=== PATIENT | female | born 1960 ===

== ENCOUNTER 2019-02-28 05:12 | Inpatient (IN) | payer OTHER ==
[2019-02-28] VITALS (14 sets, daily range): BP systolic 120–152; BP diastolic 67–86
[~2019-02-28] VITALS: Ht 154.9 cm; Wt 98.0 kg
[~2019-02-28 05:12] MED LIST: TIMOPTIC 0.5%1 DROP BOTH EYES
[2019-02-28] MEDS ORDERED: Lidocaine 1% MPF 10mg/ml 5ml ONE (06:34)
[2019-02-28] MEDS ORDERED: Phenylephrine 10mg/ml Vial ONE (06:38)
[2019-02-28] MEDS ORDERED: fentaNYL 100 mcg/2 mL IV ONE (06:43)
[2019-02-28] MEDS ORDERED: Midazolam 2mg/2ml Inj ONE (06:43)
[2019-02-28] MEDS ORDERED: Rocuronium Bromide 50mg/5ml Inj IV ONE (06:53)
[2019-02-28] MEDS ORDERED: Succinylcholine 20mg/ml 10ml vial ONE (06:53)
[2019-02-28] MEDS ORDERED: Bacitracin 50000 Units Vial ONE (06:59)
[2019-02-28] MEDS ORDERED: Gelfoam Size TOPIC ONE (06:59)
[2019-02-28] MEDS ORDERED: Thrombin 5000 units TOPIC ONE (06:59)
[2019-02-28] MEDS ORDERED: Sterile Water Irrig 1000ml IRRIG ONE (07:00)
[2019-02-28] MEDS ORDERED: LR 1000ml ONE (07:00)
[2019-02-28] MEDS ORDERED: Propofol 1,000mg/ 100ml btl IV ONE (07:00)
[2019-02-28] MEDS ORDERED: Neostigmine 1mg/ml 10ml Inj ONE (07:00)
[2019-02-28] MEDS ORDERED: NS Irrig 1000ml ONE (07:00)
--- NOTE | 2019-02-28 07:21 | Anethesia Preoperative Eval ---
Anesthesia Pre-op PMH/ROS General Date of Evaluation: Feb 28, 2019 Time of Evaluation: 06:55 Anesthesiologist: Dayan ASA Score: ASA 3 Mallampati Score Class I : Soft palate, uvula, fauces, pillars visible Class II: Soft palate, uvula, fauces visible Class III: Soft palate, base of uvula visible Class IV: Only hard plate visible Mallampati Classification: Class III Surgeon: Samia Diagnosis: Cervical radiculopathy Surgical Procedure: ACDF Anesthesia History: none Family History: no anesthesia problems Allergies: Coded Allergies: No Known Allergies (Unverified , 02/27/19) Medications: see eMAR Patient NPO?: Yes NPO Date: Feb 27, 2019 NPO Time: 1999 Past Medical History Cardiovascular: Reports: HTN - borderline; Denies: CAD, VA, valve dz, arrhythmia, other Pulmonary: Reports: SANTY; Denies: asthma, COPD, other Gastrointestinal/Genitourinary: Reports: GERD; Denies: CRI, ESRD, other Neurologic/Psychiatric: Reports: depression/anxiety, other - chronic pain; Denies: dementia, CVA, TIA Endocrine: Denies: DM, hypothyroidism, steroids, other HEENT: Reports: glaucoma; Denies: cataract (L), cataract (R), ONONDAGA (L), ONONDAGA (R), other Hematology/Immune: Denies: anemia, DVT, bleeding disorder, other Musculoskeletal/Integumentary: Reports: OA Other: obesity PMH Narrative: as above PSxH Narrative: T&A, x3 Anesthesia Pre-op Phys. Exam Physician Exam Last Vital Signs Date Time Temp Pulse Resp B/P (MAP) Pulse Ox O2 Delivery O2 Flow Rate FiO2 02/28/19 06:10 97.2 87 20 152/72 (98) 100 02/28/19 05:52 Room Air Constitutional: NAD Neurologic: CN 2-12 intact Cardiovascular: RRR, no M/R/G Respiratory: CTA Gastrointestinal: other - obesity Airway Exam Mallampati Score: Class III MO: limited Neck: short stiff ROM: limited Teeth: missing Dentures: no upper, no lower Anesthesia Pre-op A/P Labs see chart Studies Pre-op Studies: EKG - NSR, CXR - WNL Risk Assessment & Plan Assessment: ASA 3 Plan: GA with ETT neuromonitoring Status Change Before Surgery: No Pre-Antibiotics Drug: Ancef 2 gr. Given Within 1 Hr of Incision: Yes Time Given: 07:55 Guanako Hanley MD Feb 28, 2019 07:21
[2019-02-28] MEDS ORDERED: Acetaminophen (Non formulary) 100 ML IV ONE (07:30)
--- NOTE | 2019-02-28 07:31 | Brief Operative Note ---
Immediate Post Operative Note Operative Note Chief Complaint: Neck pain and radiculopathy Pre-op Diagnosis: C67 herniation and radiculopathy Procedure: Anterior cervical discectomy and fusion of Cervical 67 Post-op Diagnosis: same as pre-op Findings: consistent w/pre-op dx studies Surgeon: Samia Branch Account Executive: Wes Anesthesiologist: BLUE Anesthesia: general Specimen: none Complications: none Condition: stable Fluids: IV Estimated Blood Loss: minimal Drains: none Implant(s) used?: Yes - Nuvasive interlock c sz 6, screws 13x3 Conrad Gracia MD Feb 28, 2019 07:31
--- NOTE | 2019-02-28 07:31 | Pre-Procedure Note/Attestation ---
Pre-Procedure Note/Attestation Complete Prior to Procedure Planned Procedure: not applicable Procedure Narrative: Anterior cervical discectomy and fusion of Cervical 67 Indications for Procedure Pre-Operative Diagnosis: C67 herniation and radiculopathy Attestation I attest that I discussed the nature of the procedure; its benefits; risks and complications; and alternatives (and the risks and benefits of such alternatives ), prior to the procedure, with the patient (or the patient's legal apprenticeship representative). I attest that, if there was a reasonable possibility of needing a blood transfusion, the patient (or the patient's legal apprenticeship representative) was given the [facility] standardized written summary, pursuant to the [place] Blood Safety Act ([place] Health and Safety Code # 1645, as amended). I attest that I re-evaluated the patient just prior to the surgery and that there has been no change in the patient's H&P, except as documented below: Conrad Gracia MD Feb 28, 2019 07:31
[2019-02-28] MEDS ORDERED: Metoprolol 5mg/5ml Inj ONE (08:05)
[2019-02-28] MEDS ORDERED: Morphine Sulfate 10mg/ml Inj ONE (08:20)
[2019-02-28] MEDS ORDERED: Sodium Chloride 10ml vial INJ ONE ×2 (08:33→08:53)
[2019-02-28] MEDS ORDERED: Ketorolac 30mg Inj ONE (08:33)
[2019-02-28] MEDS ORDERED: Glycopyrrolate 0.2mg/ml 1ml Vial ONE (08:36)
[2019-02-28] MEDS ORDERED: LR 1000ml 1,000 ML IVLG SCH (08:42)
[2019-02-28] MEDS ORDERED: Metoclopramide 10mg/2ml Inj IVP PRN ×2 (08:45→11:00)
[2019-02-28] MEDS ORDERED: DiphenhydrAMINE 50mg/ml Inj IVP PRN (08:45)
[2019-02-28] MEDS ORDERED: Hydromorphone 0.5mg/0.5ml inj IVP PRN (08:45)
[2019-02-28] MEDS ORDERED: Ketorolac 30mg Inj IV PRN (08:45)
--- NOTE | 2019-02-28 09:43 | Immediate Post-Op Evaluation ---
Immediate Post-Op Evalulation Immediate Post-Op Evalulation Procedure: ACDF C6-C7 Date of Evaluation: Feb 28, 2019 Time of Evaluation: 09:41 IV Fluids: 700 Blood Products: none Estimated Blood Loss: 50 Urinary Output: 300 Blood Pressure Systolic: 134 Blood Pressure Diastolic: 78 Pulse Rate: 82 Respiratory Rate: 20 O2 Sat by Pulse Oximetry: 98 Temperature (Fahrenheit): 97.6 Pain Score (1-10): 2 Nausea: No Vomiting: No Complications none Patient Status: reacts, patent, extubated, none Hydration Status: adequate Guanako Hanley MD Feb 28, 2019 09:43
--- NOTE | 2019-02-28 10:35 | NUR ---
NURSE NOTES: Patient received from PACU via bed to 302-1 at 1035 on O2 3LNC. Patient sleeping, arousable to name, follows verbal command. Denies SOB, pain or nausea. Neuro checks done, intact, hand grasps and pedal pushes equal/strong 5/5, skin warm, wiggles, no NT. Anterior neck surgical dressing, Dermabond intact, site clean/dry, slightly swollen and bruised. Ice pack to anterior and posterior neck. Bilateral SCDs on. IVF (LR) infusing to RAC, will change to NS+20KCL as ordered, when received from pharmacy. Notified RT for IS. Oriented patient to room and call light, verbalized understanding. Belongings reviewed with patient and PACU nurse. Bed in lowest position, call light in reach, will continue to monitor.
[2019-02-28] MEDS ORDERED: Morphine Sulfate 2mg/ml Inj(IV/IM USE ONLY) IV PRN (11:00)
[2019-02-28] MEDS ORDERED: HYDROmorphone 1mg/ml Carpuject IVP PRN (11:00)
[2019-02-28] MEDS ORDERED: HYDROcodone/Acetamin 7.5/325 tab ORAL PRN (11:00)
[2019-02-28] MEDS ORDERED: Chloraseptic Spray 20mL Bottle ORAL PRN (11:00)
[2019-02-28] MEDS ORDERED: HYDROcodone/Acetamin 5/325 tab ORAL PRN (11:00)
[2019-02-28] MEDS ORDERED: Naloxone 0.4mg/ml Inj IVP PRN (11:00)
[2019-02-28] MEDS ORDERED: Milk of Magnesia 30ml Ud ORAL PRN (11:00)
[2019-02-28] MEDS ORDERED: Morphine Sulfate 4mg/ml Inj (IV USE ONLY) IV PRN ×2 (11:00)
[2019-02-28] MEDS ORDERED: Dexamethasone 4mg/ml vial IVP SCH (12:00)
[2019-02-28] MEDS: NS w/KCl 20mEq 1000ml 1,000 ML IV SCH ×2 (12:41→23:53)
--- NOTE | 2019-02-28 14:00 | NUR ---
NURSE NOTES: Patient up to bathroom, voided without difficulty. Tolerated post cervical diet. Reinforced CDB with splinting anterior neck surgical site, verbalized understanding. Neuro checks intact, remain unchanged. Denies pain, tolerating ice pack to anterior/posterior neck. Will continue to monitor.
[2019-02-28] MEDS: Dexamethasone 4mg/ml vial IVP SCH ×2 (15:17→21:37)
--- NOTE | 2019-02-28 15:30 | Operative Note - Dictated ---
DATE OF OPERATION: 02/28/2019 SURGEON: Conrad Gracia MD, orthopedic spine surgeon. CLASP MACHINE OPERATOR: Robinson Strauss M.D. PREOPERATIVE DIAGNOSES: 1. Intractable neck pain. 2. Radiculopathy. 3. Herniation, C6-C7. 4. Neural foraminal stenosis C6-C7. 5. Stenosis. POSTOPERATIVE DIAGNOSES: 1. Intractable neck pain. 2. Radiculopathy. 3. Herniation, C6-C7. 4. Neural foraminal stenosis C6-C7. 5. Stenosis. PROCEDURE PERFORMED: 1. Anterior cervical discectomy and fusion of C6-C7 using Nuvasive Interlock C, size 6 mm a total of three 13 mm screws, with the insertion of 1 mL of allograft Osteocel bone. 2. Use of intraoperative microscope. 3. Motor evoked potential monitoring. 4. Somatosensory evoked potential monitoring. 5. Supervision and interpretation of fluoroscopy. COMPLICATIONS: None. ANESTHESIA: General. ESTIMATED BLOOD LOSS: Less than 100 mL. INDICATIONS FOR SURGERY: This patient is a 59-year-old female who has a history of intractable neck pain, radiculopathy, herniation, C6-C7, neural foraminal stenosis C6-C7, stenosis. We tried a course of conservative management but despite this course there was still a significant component of persistent, recalcitrant neck pain and arm pain. The MRI demonstrated significant neural foraminal compromise secondary to disc herniations at C6-C7. We had a long discussion with Francine regarding the risks and benefits of surgery. Our discussion included but was not limited to nonoperative management, chiropractic management, another epidural steroid injection as well definitive management in the form of surgery. We recommended a Anterior cervical discectomy and fusion of C6-C7 using Nuvasive Interlock C Cage, size 6 mm a total of three 13 mm screws, with the insertion of 1 mL of allograft Osteocel bone as final definitive management. We reviewed the risks and benefits of surgery with the patient. Our discussion included a comprehensive review of the clinical issues and the nature of the clinical decision. We reviewed the alternatives, including doing nothing. The patient elected to proceed accordingly with Anterior cervical discectomy and fusion of C6-C7 using Nuvasive Interlock C Cage, size 6 mm a total of three 13 mm screws, with the insertion of 1 mL of allograft Osteocel bone. We had a long discussion regarding the risks, alternatives and benefits of surgery. Our description of the risks included a discussion in person as well as a signed consent which detailed all pertinent risks from the procedure itself. Briefly, our discussion included but was not limited to infection, bleeding, pseudarthrosis, spinal cord injury, neurovascular injury, dural tear, CSF leak, neuropathy, paralysis, permanent weakness/drop foot/drop arm, paresthesias, blindness, palsy and weakness. The patient understood there may be a need for a revision surgery or additional procedures. Approach-related complications including dysphonia, dysphagia, blindness, permanent vocal cord and neural injury, hematoma, swallowing and breathing difficulty. Medical complications were reviewed including liver, kidney, shock, cardiopulmonary failure, anesthesia complications including , swelling, damage to the musculature, larynx/voice injury or loss, esophagus/throat, trachea, blood vessels and muscles/muscular sprain and lungs/pneumothorax during this surgical procedure; injury to deeper structures may be temporary or permanent. After this review of risks, the patient understood these and elected to proceed. A written and verbal consent was given. We discussed the pros and cons of all the alternatives. We discussed the uncertainties associated with the decision. Afterwards I assessed the patient's understanding and explored their preferences. All questions were answered and no guarantees were given. Medical clearance was obtained prior to surgery. INTRAOPERATIVE FINDINGS: At C6-C7, the disc demonstrated a slight decrease in disc height. The disc was not bone on bone by any means. The disc material itself was soft and hydrated. The disc was not calcified or thrombosed as we tend to see in a degenerative process. There was an anterior bone spur on the inferior limb of the C6 vertebral body. Once the disc was resected posteriorly along the posterior longitudinal ligament, I noticed a vertical tear on the PLL, which was left sided. This tear was probed with a Microsect 1-B and I found the inferior limb of the disc herniation, which was encroaching on the neural foramina and thecal sac posteriorly. This was resected with a Kerrison 1 and Kerrison 2 revealing a large disc herniation encroaching on the neural foramina there at C6-C7 on the left side. This was resected without difficulty and there was no calcification in the disc itself made me to believe this was more acute in nature. DESCRIPTION OF PROCEDURE: Under the benefit of general endotracheal anesthesia and with the assistance of the entire operative team, the [facility] operative table in the supine position. The head was secured and carefully positioned appropriately. Bilateral arms were secured with Gelpads and foam and all bony prominences were padded. For the bilateral lower extremities SCD and SUKHDEEP hose were placed for DVT prophylaxis. A surgical timeout was called which corroborated our planned procedure of Anterior cervical discectomy and fusion of C6-C7 using Nuvasive Interlock C, size 6 mm a total of three 13 mm screws, with the insertion of 1 mL of allograft Osteocel bone. Preoperative antibiotics were administered within 30 minutes of the incision for antibiotic prophylaxis. Using lateral fluoroscopic radiography, the operative levels were delineated. Next the wound was prepped and draped with Chlorhexidine and sterile drapes. An incision was based on lateral fluoroscopy and we centered our incision at the C6-C7 interspace and next using a standard Alvarez-Hong anterior based approach the incision was taken down through the skin and subcutaneous tissues until the vertebral bodies and their corresponding disc spaces were visualized. A needle was placed into the interspace to confirm placement of the operative interspace and we performed the remainder of procedure under microscopic visualization. Next, using a bipolar and Bovie cautery to ensure meticulous hemostasis, the longus colli was mobilized bilaterally and retractors were placed deep to the longus colli bilaterally to address retraction. Next we turned our attention to the radical anterior discectomy. This was initially performed at C6-C7. First by using a 15 blade scalpel followed by narrow pituitaries and a micro-sect 5-B curette was used to denude the endplate of all cartilaginous tissue. Next using a Midas Delfino AM8 drillbit the partial vertebrectomy was performed in a [id number] and layer by layer fashion, and ultimately the posterior uncinate joints bilaterally and posterior osteophytic lips and margins causing central and lateral impingement were carefully denuded until visualization of the posterior longitudinal ligament was possible. An endplate preparation was performed in the exact same fashion using an intervertebral meat stuffer, sequential distraction was obtained throughout the disc space. We saw a tear/rent in the PLL and this was carefully mobilized and dissected using a micro-set 1-B curet until we visualized a broad-based disc herniation with compression of the spinal cord as well as neural foramina which was left more than right sided. This neural foraminal compression was carefully resected using a Kerrison-1 and Kerrison-2 rongeurs until complete decompression of the spinal cord was visualized and complete decompression of the neural foramina and nerve root therein as well as the axilla and lateral margin of the nerve root was visualized and subsequently completely decompressed. The family was notified at one hour intervals throughout the procedure to provide for consistent updates. We next turned our attention towards trialing our implant within the disc space. We initially tried size 5 and afterwards size 6 trial from the Nuvasive Interlock C at each level, which appeared to be appropriate under AP and lateral fluoroscopy as well as in terms of its height, depth, width and lack of toggle. The PEEK polyetheretherketone interbody cages were then both packed with allograft bone from Osteocel and local autograft bone matrix. Next these were then carefully advanced and secured into their intervertebral spaces under direct visualization and with supervision of AP and lateral fluoroscopic views. We next turned our attention towards plating. Plating was performed with Nuvasive Interlock C plating system. A total of three screws, size 13 mm in length were inserted and confirmed under AP and lateral fluoroscopy and confirmed to be in excellent position. After a finger sweep we confirmed removal of all sponges. The retractor was removed and we next turned our attention to meticulous hemostasis with FloSeal and bipolar cautery. After the sponge and needle count was again found to be correct with our second count, we next turned our attention to closure. The wound was again copiously irrigated with antibiotic impregnated saline. Closure consisted of 4-0 clear nylon for the platysma, and 6-0 clear nylon for the superficial skin. Final skin closure and dressings consisted of Dermabond. Prior to final closure, a final radiograph was obtained which demonstrated the hardware is intact with excellent position throughout. The patient tolerated the procedure well. The patient was carefully extubated after the conclusion of surgery. We discussed the findings of the surgery with the family upon completion of the case. At this point the patient was transferred to the spine floor for further observation. Conrad Gracia M.D. DR: RAUL JOB#: [id number] CC:
--- NOTE | 2019-02-28 16:05 | NUR ---
CASE MANAGEMENT:REVIEW 59 YR OLD FEMALE HERE FOR ELECTIVE SURGERY SI: INTRACTABLE NECK PAIN. RADICULOPATHY 97.2 87 20 152/72 100% ON RA IS: TO SURGERY: ANTERIOR CERVICAL DISCECTOMY : TO MED/SURG 3 EAST POST OP INTERQUAL CRITERIA MET
[2019-02-28] MEDS: ceFAZolin sod 1 GM in D5W 55 ML IV SCH ×2 (16:37→23:52)
[2019-02-28] MEDS: Docusate 100mg cap ORAL SCH (17:24)
[2019-02-28] MEDS ORDERED: Tubing IV Secondary IV ONE (18:17)
--- NOTE | 2019-02-28 18:25 | NUR ---
NURSE NOTES: Reinforced IS indication, proper use and to apply small towel as splint to anterior neck surgical site, while performing IS, verbalized understanding.
--- NOTE | 2019-02-28 19:20 | NUR ---
HAND-OFF: Report given to Yu WELSH, rounds made.
--- NOTE | 2019-02-28 21:22 | NUR ---
NURSES NOTE: Met pt in bed, A/OX4, communicative, able to let needs be known. Patient denies pain in anterior neck. No outward s/s of distress noted. Breathing pattern is even and unlabored on RA as pt was weaned of off oxygen. Tolerated well. VS stable. Neuro check completed. Iv site shows no s/s of infiltration or infection running fluids at 100ml/hr without incident. Pt ambulated to the bathroom with assistance. SCD replaced once pt bk to bed. Bed at lowest level. Call light within reach. Pt will continue to be monitored.
--- NOTE | 2019-02-28 23:10 | NUR ---
NURSES NOTE: Pt in stable condition. Denies pain. Ice pack replinished and applied to Anterior neck. Surgical site, anterior neck-dermabond intact, slight swelling noted. IV RAC patent, running NS 20 kcl at 100cc/hr. Pt will continue to be monitored.
--- NOTE | 2019-02-28 23:28 | NUR ---
NURSES NOTE: NS 20 kcl not found in med room. Charge nurse also looked and made aware. Picked up from ED pixes by charge nurse.
[2019-03-01] MEDS: Dexamethasone 4mg/ml vial IVP SCH ×2 (02:57→08:15)
[2019-03-01] MEDS: HYDROcodone/Acetamin 7.5/325 tab ORAL PRN ×2 (04:52→14:17)
--- NOTE | 2019-03-01 07:29 | NUR ---
NURSE NOTES: Report received from Yu WELSH, rounds made. Patient sitting in upright position in bed. No distress on RA, encouraged IS use. Pain 4/10, denies need for pain medication at this time. Toleraling post cervical diet, no NV. Neuro intact. Skin warm, wiggles, no NT, pulses palpable. IVF (NS +20KCL at 100 ml) infusing to RAC, site asymptomatic. Bilateral SCDs on. Anterior neck surgical site, CDI, dermabond noted, mild bruising/swelling. Ice pack to anterior neck in place. Call light in reach, bed in lowest position, will continue to monitor.
[2019-03-01 08:00] VITALS: BP 124/77
[2019-03-01] MEDS: NS w/KCl 20mEq 1000ml 1,000 ML IV SCH (08:00)
--- NOTE | 2019-03-01 08:05 | NUR ---
HABND OFF: Report given to josh Harper. Patient stable.
[2019-03-01] MEDS: Docusate 100mg cap ORAL SCH (08:14)
[2019-03-01] MEDS: ceFAZolin sod 1 GM in D5W 55 ML IV SCH (08:14)
--- NOTE | 2019-03-01 09:15 | NUR ---
PT EVALUATION NOTE Patient seen for initial evaluation. Patient educated in proper log roll technique for in/OOB and cervical precautions. Patient SBA for bed mobility tasks, supervised for transfers and ambulation without assistive device. Patient will benefit from skilled inpatient PT intervention to address functional mobility and adherence to cervical precautions. Anticipate discharge home once medically cleared by MD. No DME needs identified at this time. Addendum: 03/01/19 at 0951 by ELIEL CHILDERS PT Amended: Links added.
[2019-03-01 10:39] VITALS: BP 128/76
--- NOTE | 2019-03-01 10:39 | 48 Hour Post Anesthesia Eval ---
Post Anesthesia Evaluation Procedure: ACDF C6-C7 Date of Evaluation: Mar 01, 2019 Time of Evaluation: 10:38 Blood Pressure Systolic: 128 0: 76 Pulse Rate: 78 Respiratory Rate: 20 Temperature (Fahrenheit): 97.6 O2 Sat by Pulse Oximetry: 98 Airway: patent Nausea: No Vomiting: No Pain Intensity: 3 Hydration Status: adequate Cardiopulmonary Status: stable Mental Status/LOC: patient returned to baseline Follow-up Care/Observations: n/a Post-Anesthesia Complications: none Follow-up care needed: ready to discharge Guanako Hanley MD Mar 01, 2019 10:39
--- NOTE | 2019-03-01 13:35 | NUR ---
NURSE NOTES: Patient up with RN to bathroom at 11 am, transfers well with RN instruction on how to log roll, maintain alignment using proper body mechanics. Voids well without difficulty, reports she had a BM earlier this morning, normal soft, brown, moderate. Appetite good. Discontinued IVF at 9 am. Ambulated in halls with PT twice. Plan for discharge at 3 pm.
--- NOTE | 2019-03-01 15:18 | Diagnostic Imaging Report ---
INDICATION: Pain, intraoperative TECHNIQUE: Intraoperative imaging Fluoroscopy time: 25.6 seconds Total dose: 0.43998 mGym2 Total number of images: 3 COMPARISON: None FINDINGS: Initial localizer image demonstrates a surgical tool projected at the C6-7 disc level. Subsequent images demonstrate anterior fusion hardware at C6-7. IMPRESSION: Intraoperative imaging, as described
[2019-03-01] MEDS ORDERED: NORCO 10-325 T1 EACH ORAL (15:47)
--- NOTE | 2019-03-01 16:20 | NUR ---
NURSE NOTES: Discharge instructions and prescription x1 reviewed with patient, verbalized understanding. Medicated for pain an hour prior to discharge, patient states pain is 5/10. Ice packs provided for home use. All belongings, discharge instructions and prescription x1 given to patient. IV heplock discontinued, no active bleeding. [facility], in stable condition. Discharged home at 1620. Addendum: 03/01/19 at 2006 by Meredith Panda RN IS sent home with patient, reinforced the importance of CDB with anterior neck splinting, verbalized understanding.
--- NOTE | 2019-03-03 08:17 | Discharge Summary ---
Discharge Summary Discharge Summary _ DATE OF ADMISSION: 02/28/2019 DATE OF DISCHARGE: 03/01/2019 DISCHARGED BY: Dr. Conrad Gracia BRIEF HOSPITAL COURSE: Patient is a 59-year-old female, who has history of intractable neck pain, radiculopathy, herniation, C6-C7, neural foraminal stenosis at C6-C7, was tried a course of conservative management but despite there was still significant component of persistent, recalcitrant neck pain and arm pain. MRI demonstrated significant neural foraminal compromise secondary to disc herniations at C6-C7. Patient was admitted on 02/28/2019 and underwent ACDF C6-C7. She tolerated procedure well. Surgery was uneventful. Post-operatively, patient was admitted for post-op care. She was placed on SCDs for DVT prophylaxis and was encouraged use of incentive spirometer. Patient was given pain management. She was seen by PT. Diet was advanced. Incision was clean, dry and intact. Patient was ambulating well with good pain control and was tolerating diet. Patient was eventually cleared for discharge home. FINAL DIAGNOSES: 1. Intractable neck pain. 2. Radiculopathy. 3. Herniation, C6-C7. 4. Neural foraminal stenosis C6-C7. 5. Stenosis. PROCEDURE PERFORMED: 1. Anterior cervical discectomy and fusion of C6-C7 using Nuvasive Interlock C, size 6 mm a total of three 13 mm screws, with the insertion of 1 mL of allograft Osteocel bone. 2. Use of intraoperative microscope. 3. Motor evoked potential monitoring. 4. Somatosensory evoked potential monitoring. 5. Supervision and interpretation of fluoroscopy. (Refer to Operative Report) DISCHARGE DISPOSITION: Patient was discharged home. DISCHARGE MEDICATIONS: Refer to Medication Reconciliation Sheet. DISCHARGE INSTRUCTIONS: Post-op instructions given. Follow-up in a week. I have been assigned to complete a DC summary on this account, I was not involved with the patient's management.--DEMETRIS Cruz Jacqueline Robles NP Mar 03, 2019 08:17
== END 2019-03-01 16:20 | disposition home or self-care (01) | DRG 473 ==
LOC: SDSOVERFLO 05:12 → 3E 10:31
DX: M50.123 Cervical disc disorder at C6-C7 level with radiculopathy (principal); M48.02 Spinal stenosis, cervical region
CPT/HCPCS: 36415; 72040; 76000; 86850; 86900; 86901; 87081; 94003; 94150; J2250; J2370; J2405; J2710